=== PATIENT | female | born 1965 | race Caucasian/White ===

== ENCOUNTER 2023-04-26 14:21 | Inpatient (IN) | payer BC, OTHER ==
[~2023-04-26] VITALS: Ht 160 cm; Wt 152.0 kg
[2023-04-26] VITALS (7 sets, daily range): BP systolic 97–128; PULSE 101–126; RESP 17–26; TEMP 97.9–98.4; O2SAT 93–100
[2023-04-26] MEDS ORDERED: methylPREDNISolone SOD SUCC/PF 62.5 MG/ML VIAL IVP ONE (14:30)
[2023-04-26 16:06] LABS: BASOPHILS # (AUTO) 0.1 K/uL (0.0-0.2); BASOPHILS % (AUTO) 0.5 % (0.0-2.0); EOSINOPHILS # (AUTO) 0.3 K/uL (0.0-0.4); EOSINOPHILS % (AUTO) 2.4 % (0.0-4.0); HEMATOCRIT 35.3 % (36-48); HEMOGLOBIN 11.9 g/dL (12.0-16.0); LYMPHOCYTES # (AUTO) 1.8 K/uL (1.0-5.5); LYMPHOCYTES % (AUTO) 15.9 % (20.5-51.5); MEAN CORPUSCULAR HEMOGLOBIN 33 pg (27-31); MEAN CORPUSCULAR HGB CONC 34 % (32-36); MEAN CORPUSCULAR VOLUME 97 fL (79.0-98.0); MONOCYTES # (AUTO) 0.8 K/uL (0.0-1.0); NEUTROPHILS # (AUTO) 8.3 K/uL (1.8-7.7); NEUTROPHILS % (AUTO) 74.2 % (40.0-70.0); PLATELET COUNT (AUTO) 326 K/uL (130-430); RED BLOOD CELL COUNT(AUTO) 3.63 MIL/uL (4.2-6.2); RED CELL DISTRIBUTION WIDTH 14.2 % (9.0-15.0); WHITE BLOOD COUNT (AUTO) 11.1 K/uL (4.8-10.8)
[2023-04-26] MEDS ORDERED: PIPERACILLIN/TAZO 4.5 GM in NS 100 ML IV ONE (16:15)
[2023-04-26 16:25] LABS: ANION GAP 14 (5-15); CALCIUM 8.4 mg/dL (8.4-11.0); CARBON DIOXIDE 26 mmol/L (23-29); CHLORIDE 99 mmol/L (98-107); CREATININE 1.49 mg/dL (0.55-1.30); GFR AFRICAN AMERICAN 47 mL/min (>90); GLUCOSE 174 mg/dL (74-106); POTASSIUM 3.3 mmol/L (3.5-5.1); SODIUM SERUM 139 mmol/L (136-145); UREA NITROGEN, BLOOD 39 mg/dL (8-21)
[2023-04-26 16:29] LABS: GFR NON AFRICAN-AMERICAN 38 mL/min (>90)
[2023-04-26] MEDS ORDERED: PIPERACILLIN/TAZOBACTAM 4.5 GM/VIAL (ZOSYN) IV ONE (16:58)
[2023-04-26] MEDS ORDERED: NACL 0.9% 1,000 ML IV ONE (17:15)
[2023-04-26 17:29] LABS: ABG O2 SAT% ESTIMATE 92.8 % (94.0-100.0); BLOOD GAS BASE EXCESS 1.6 mmol/L (-3.0-3.0); BLOOD GAS HCO3 25.9 mmol/L (21.0-27.0); BLOOD GAS PCO2 39.8 mmHg (35.0-45.0); BLOOD GAS PH 7.432 (7.350-7.450); BLOOD GAS PO2 63.2 mmHg (75.0-100.0)
[2023-04-26 17:30] LABS: ALLEN'S TEST POSITIVE (P)
[2023-04-26] MEDS ORDERED: IPRATROPIUM/ALBUTEROL SULFATE 3 ML AMPUL.NEB (DUONEB) INH PRN ×3 (17:30→22:00)
[2023-04-26 17:47] LABS: INR 1.3 (0.8-1.2); PROTHROMBIN TIME 13.1 SECS (9.5-12.5)
[2023-04-26] MEDS ORDERED: LINEZOLID 300 ML IV ONE (18:00)
[2023-04-26] MEDS ORDERED: NACL 0.9% 2,000 ML IV ONE (18:15)
[2023-04-26] MEDS ORDERED: HYDR-3917 PO (18:17)
[2023-04-26] MEDS ORDERED: LOSA1TAB37 PO (18:17)
[2023-04-26] MEDS ORDERED: BETA15CR3 TP (18:17)
[2023-04-26] MEDS ORDERED: ALBU10.7 (18:17)
[2023-04-26] MEDS ORDERED: POTA-178 PO (18:17)
[2023-04-26] MEDS ORDERED: LORA-258 (18:17)
[2023-04-26] MEDS ORDERED: HYDC2.5% TP (18:17)
[2023-04-26] MEDS ORDERED: PARO-41 PO (18:17)
[2023-04-26] MEDS ORDERED: SPIR25TA6 PO (18:17)
[2023-04-26] MEDS ORDERED: BENZ100C92 PO (18:17)
[2023-04-26] MEDS ORDERED: HYDR-3927 PO (18:17)
[2023-04-26] MEDS ORDERED: ONDA-8 PO (18:17)
[2023-04-26] MEDS ORDERED: FURO40TA5 PO (18:17)
[2023-04-26] MEDS ORDERED: FLUO15OI4 (18:17)
[2023-04-26] MEDS ORDERED: LOM2.5 (18:17)
[2023-04-26] MEDS ORDERED: *LOVENOX 1MG/KG Q12H/PHARMACY XX ONE (18:30)
[2023-04-26 19:22] LABS: BILIRUBIN,URINE 1+ (NEGATIVE); BLOOD, URINE 2+ (NEGATIVE); CLARITY/URINE SL CLOUDY (CLEAR); COLOR,URINE YELLOW (YELLOW); GLUCOSE,URINE NEGATIVE (NEGATIVE); KETONES,URINE TRACE (NEGATIVE); LEUKOCYTE ESTERASE ,URINE 2+ (NEGATIVE); NITRITE, URINE NEGATIVE (NEGATIVE); PROTEIN URINE 1+ (NEGATIVE); UROBILINOGEN,URINE 0.2 (0.2-1.0)
[2023-04-26 20:09] LABS: BACTERIA,URINE MODERATE /HPF (None Seen); FINE GRANULAR CASTS,URINE 0-10 /LPF (None Seen)
[2023-04-26 20:10] LABS: MUCUS,URINE None Seen /LPF (None Seen); OTHER CASTS, URINE WAXY CASTS 1+ /LPF (None Seen)
[2023-04-26] MEDS ORDERED: ENOXAPARIN SODIUM SUBCUT ONE ×2 (21:00)
[2023-04-26] MEDS ORDERED: TEMAZEPAM 15 MG CAPSULE PO PRN (21:30)
[2023-04-26] MEDS ORDERED: ACETAMINOPHEN 325 MG TABLET PO PRN ×2 (21:30→22:00)
[2023-04-26] MEDS: LINEZOLID 300 ML IV SCH (21:42)
[2023-04-26] MEDS ORDERED: ENOXAPARIN SODIUM 30 MG/0.3 ML SYRINGE ONE (21:48)
[2023-04-26] MEDS ORDERED: NALOXONE HCL 0.4 MG/ML AMP (NARCAN) IVP PRN ×2 (22:00)
[2023-04-26] MEDS ORDERED: HYDROcodone/ACETAMIN 10-325 MG TAB PO PRN (22:00)
[2023-04-26] MEDS ORDERED: HYDROcodone/ACETAMIN 5-325 MG TAB (NORCO/ VICODIN) PO PRN (22:00)
[2023-04-26] MEDS ORDERED: ONDANSETRON 4 MG ODT TAB PO PRN (22:00)
[2023-04-26] MEDS: BENZONATATE 100 MG CAPSULE (TESSALON) PO PRN (22:25)
[2023-04-26] MEDS: LR 1,000 ML IV SCH (23:16)
[2023-04-26 23:25] LABS: COVID19 ANTIGEN SOFIA FIA NEGATIVE (NEGATIVE)
[2023-04-26 23:56] LABS: INFLUENZA TYPE A Negative (NEGATIVE); INFLUENZA TYPE B NEGATIVE (NEGATIVE)
[2023-04-27] VITALS (29 sets, daily range): BP systolic 105–145; PULSE 70–109; RESP 17–27; TEMP 97.6–98.5; O2SAT 95–100
[2023-04-27] MEDS: IPRATROPIUM/ALBUTEROL SULFATE 3 ML AMPUL.NEB (DUONEB) INH SCH ×4 (02:00→21:26)
[2023-04-27 05:37] LABS: BASOPHILS % (AUTO) 0.1 % (0.0-2.0); HEMATOCRIT 35.7 % (36-48); HEMOGLOBIN 12.1 g/dL (12.0-16.0); LYMPHOCYTES # (AUTO) 0.9 K/uL (1.0-5.5); LYMPHOCYTES % (AUTO) 8.7 % (20.5-51.5); MEAN CORPUSCULAR HEMOGLOBIN 33 pg (27-31); MEAN CORPUSCULAR HGB CONC 34 % (32-36); MEAN CORPUSCULAR VOLUME 97 fL (79.0-98.0); MONOCYTES # (AUTO) 0.3 K/uL (0.0-1.0); MONOCYTES % (AUTO) 2.6 % (1.7-9.3); NEUTROPHILS # (AUTO) 9.2 K/uL (1.8-7.7); NEUTROPHILS % (AUTO) 88.6 % (40.0-70.0); PLATELET COUNT (AUTO) 262 K/uL (130-430); RED BLOOD CELL COUNT(AUTO) 3.69 MIL/uL (4.2-6.2); RED CELL DISTRIBUTION WIDTH 13.9 % (9.0-15.0); WHITE BLOOD COUNT (AUTO) 10.3 K/uL (4.8-10.8)
[2023-04-27 06:18] LABS: ALBUMIN 1.7 g/dL (3.4-4.8); CALCIUM 8.6 mg/dL (8.4-11.0); FREE T4 (FREE THYROXINE) 1.2 ng/dL (0.6-1.6); PHOSPHORUS 4.2 mg/dL (2.7-4.5); POTASSIUM 3.9 mmol/L (3.5-5.1); THYROID STIMULATING HORMONE 1.39 uIu/mL (0.34-4.82); TOTAL BILIRUBIN 0.4 mg/dL (0.0-1.0)
[2023-04-27] MEDS ORDERED: SPIRONOLACTONE 25 MG TABLET (ALDACTONE) PO SCH (09:00)
[2023-04-27] MEDS: FUROSEMIDE 40 MG TABLET PO SCH ×2 (09:47→20:49)
[2023-04-27] MEDS: POTASSIUM CHLORIDE 10 MEQ TABLET.ER PO SCH (09:47)
[2023-04-27] MEDS: PARoxetine HCL 20 MG TABLET PO SCH (09:47)
[2023-04-27] MEDS: LINEZOLID 300 ML IV SCH ×2 (09:48→20:49)
[2023-04-27] MEDS: HYDROCORTISONE 2.5%, 30 GM TOPICAL CREAM TP SCH ×2 (09:49→20:49)
[2023-04-27] MEDS ORDERED: *HEPARIN PER PHARMACY XX ONE (11:45)
[2023-04-27] MEDS ORDERED: HEPARIN SODIUM,PORCINE 3000 UNITS/0.6 ML BOLUS IVP PRN (11:45)
[2023-04-27] MEDS ORDERED: HEPARIN SODIUM,PORCINE 2000 UNITS/0.4 ML BOLUS IVP PRN (11:45)
[2023-04-27] MEDS ORDERED: HEPARIN SODIUM,PORCINE 5,000 UNITS/ML VIAL IVP ONE (12:00)
[2023-04-27] MEDS ORDERED: MICAFUNGIN SODIUM 50 MG in NS 50 ML IV SCH (13:00)
[2023-04-27] MEDS: HEPARIN 25,000 UNITS/D5W 250ML 250 ML IV PRN (13:49)
[2023-04-27] MEDS: MEROPENEM 500 MG in NS 50 ML IV SCH ×2 (13:50→22:34)
[2023-04-27] MEDS: LR 1,000 ML IV SCH (16:09)
[2023-04-27] MEDS: MICAFUNGIN SODIUM 50 MG in NS 50 ML IV SCH (16:09)
[2023-04-27] MEDS ORDERED: LEVOFLOXACIN 250 MG/D5W 50 ML IV SCH (21:00)
[2023-04-28] VITALS (28 sets, daily range): BP systolic 92–154; PULSE 69–113; RESP 15–33; TEMP 97.5–98.2; O2SAT 90–100
[2023-04-28 05:08] LABS: BASOPHILS % (AUTO) 0.1 % (0.0-2.0); HEMATOCRIT 33.3 % (36-48); HEMOGLOBIN 11.1 g/dL (12.0-16.0); LYMPHOCYTES % (AUTO) 6.2 % (20.5-51.5); MEAN CORPUSCULAR HEMOGLOBIN 32 pg (27-31); MEAN CORPUSCULAR HGB CONC 33 % (32-36); MEAN CORPUSCULAR VOLUME 97 fL (79.0-98.0); MONOCYTES # (AUTO) 1.2 K/uL (0.0-1.0); MONOCYTES % (AUTO) 7.5 % (1.7-9.3); NEUTROPHILS # (AUTO) 13.3 K/uL (1.8-7.7); NEUTROPHILS % (AUTO) 86.2 % (40.0-70.0); PLATELET COUNT (AUTO) 260 K/uL (130-430); RED BLOOD CELL COUNT(AUTO) 3.44 MIL/uL (4.2-6.2); RED CELL DISTRIBUTION WIDTH 13.8 % (9.0-15.0); WHITE BLOOD COUNT (AUTO) 15.4 K/uL (4.8-10.8)
[2023-04-28 05:31] LABS: ALBUMIN 1.6 g/dL (3.4-4.8); CREATININE 1.81 mg/dL (0.55-1.30); POTASSIUM 3.5 mmol/L (3.5-5.1); TOTAL BILIRUBIN 0.3 mg/dL (0.0-1.0); TOTAL PROTEIN, SERUM 7.1 g/dL (6.4-8.3)
[2023-04-28] MEDS: LR 1,000 ML IV SCH (07:20)
[2023-04-28] MEDS: PARoxetine HCL 20 MG TABLET PO SCH (09:16)
[2023-04-28] MEDS: POTASSIUM CHLORIDE 10 MEQ TABLET.ER PO SCH (09:16)
[2023-04-28] MEDS: FUROSEMIDE 40 MG TABLET PO SCH ×2 (09:17→21:20)
[2023-04-28] MEDS: HYDROCORTISONE 2.5%, 30 GM TOPICAL CREAM TP SCH ×2 (09:17→21:20)
[2023-04-28] MEDS: LINEZOLID 300 ML IV SCH (09:18)
[2023-04-28] MEDS: HEPARIN 25,000 UNITS/D5W 250ML 250 ML IV PRN (10:32)
[2023-04-28] MEDS: IPRATROPIUM/ALBUTEROL SULFATE 3 ML AMPUL.NEB (DUONEB) INH SCH ×3 (11:41→19:45)
[2023-04-28] MEDS: MICAFUNGIN SODIUM 50 MG in NS 50 ML IV SCH (16:03)
[2023-04-28] MEDS: MEROPENEM 500 MG in NS 50 ML IV SCH (21:20)
[2023-04-29] VITALS (25 sets, daily range): BP systolic 107–148; PULSE 89–110; RESP 16–23; TEMP 97.5–98.2; O2SAT 90–100
[2023-04-29] MEDS: LR 1,000 ML IV SCH ×2 (00:28→16:07)
[2023-04-29] MEDS: BENZONATATE 100 MG CAPSULE (TESSALON) PO PRN ×3 (02:39→23:43)
[2023-04-29] MEDS: HEPARIN 25,000 UNITS/D5W 250ML 250 ML IV PRN ×2 (05:26→07:25)
[2023-04-29 05:34] LABS: BASOPHILS % (AUTO) 0.4 % (0.0-2.0); EOSINOPHILS # (AUTO) 0.2 K/uL (0.0-0.4); EOSINOPHILS % (AUTO) 1.7 % (0.0-4.0); HEMOGLOBIN 10.8 g/dL (12.0-16.0); LYMPHOCYTES % (AUTO) 9.1 % (20.5-51.5); MEAN CORPUSCULAR HEMOGLOBIN 33 pg (27-31); MEAN CORPUSCULAR HGB CONC 34 % (32-36); MEAN CORPUSCULAR VOLUME 97 fL (79.0-98.0); MONOCYTES # (AUTO) 0.9 K/uL (0.0-1.0); MONOCYTES % (AUTO) 8.2 % (1.7-9.3); NEUTROPHILS # (AUTO) 8.7 K/uL (1.8-7.7); NEUTROPHILS % (AUTO) 80.6 % (40.0-70.0); PLATELET COUNT (AUTO) 255 K/uL (130-430); RED CELL DISTRIBUTION WIDTH 14.1 % (9.0-15.0); WHITE BLOOD COUNT (AUTO) 10.8 K/uL (4.8-10.8)
[2023-04-29] MEDS: MEROPENEM 500 MG in NS 50 ML IV SCH ×3 (06:54→23:11)
[2023-04-29] MEDS: IPRATROPIUM/ALBUTEROL SULFATE 3 ML AMPUL.NEB (DUONEB) INH SCH ×4 (07:12→20:22)
[2023-04-29] MEDS: HYDROCORTISONE 2.5%, 30 GM TOPICAL CREAM TP SCH ×2 (08:41→21:00)
[2023-04-29] MEDS: POTASSIUM CHLORIDE 10 MEQ TABLET.ER PO SCH (08:42)
[2023-04-29] MEDS: FUROSEMIDE 40 MG TABLET PO SCH ×2 (08:42→21:00)
[2023-04-29] MEDS: PARoxetine HCL 20 MG TABLET PO SCH (08:42)
[2023-04-29 10:06] LABS: HSV 2 IgG, TYPE SPECIFIC <0.91 index (0.00-0.90)
[2023-04-29] MEDS ORDERED: APIXABAN 2.5 MG TABLET PO ONE (16:00)
[2023-04-29] MEDS: MICAFUNGIN SODIUM 50 MG in NS 50 ML IV SCH (16:04)
[2023-04-29] MEDS: NYSTATIN 15 GM TOPICAL POWDER TP SCH (21:00)
[2023-04-29] MEDS: ACYCLOVIR 400 MG TABLET PO SCH (21:00)
[2023-04-29] MEDS ORDERED: LANOLIN ALCOHOL/MO/W.PET/CERES 57 GM CREAM..G. TP SCH (21:00)
[2023-04-29] MEDS: LANOLIN ALCOHOL/MO/W.PET/CERES 57 GM CREAM..G. TP SCH (21:00)
[2023-04-29] MEDS: APIXABAN 2.5 MG TABLET PO SCH (21:00)
[2023-04-30] VITALS (10 sets, daily range): BP systolic 120–148; PULSE 90–105; RESP 18–20; TEMP 96.5–98.2; O2SAT 93–97
[2023-04-30] MEDS: MEROPENEM 500 MG in NS 50 ML IV SCH (06:43)
[2023-04-30 07:31] LABS: BASOPHILS % (AUTO) 0.5 % (0.0-2.0); EOSINOPHILS # (AUTO) 0.4 K/uL (0.0-0.4); EOSINOPHILS % (AUTO) 5.3 % (0.0-4.0); HEMATOCRIT 33.6 % (36-48); HEMOGLOBIN 11.2 g/dL (12.0-16.0); LYMPHOCYTES % (AUTO) 13.7 % (20.5-51.5); MEAN CORPUSCULAR HEMOGLOBIN 33 pg (27-31); MEAN CORPUSCULAR HGB CONC 33 % (32-36); MEAN CORPUSCULAR VOLUME 98 fL (79.0-98.0); MONOCYTES # (AUTO) 0.7 K/uL (0.0-1.0); MONOCYTES % (AUTO) 9.1 % (1.7-9.3); NEUTROPHILS # (AUTO) 5.2 K/uL (1.8-7.7); NEUTROPHILS % (AUTO) 71.4 % (40.0-70.0); PLATELET COUNT (AUTO) 260 K/uL (130-430); RED BLOOD CELL COUNT(AUTO) 3.43 MIL/uL (4.2-6.2); RED CELL DISTRIBUTION WIDTH 14.3 % (9.0-15.0); WHITE BLOOD COUNT (AUTO) 7.3 K/uL (4.8-10.8)
[2023-04-30 07:56] LABS: ALBUMIN 1.9 g/dL (3.4-4.8); CALCIUM 8.4 mg/dL (8.4-11.0); CREATININE 1.22 mg/dL (0.55-1.30); POTASSIUM 3.5 mmol/L (3.5-5.1); TOTAL BILIRUBIN 0.4 mg/dL (0.0-1.0); TOTAL PROTEIN, SERUM 7.4 g/dL (6.4-8.3)
[2023-04-30] MEDS: IPRATROPIUM/ALBUTEROL SULFATE 3 ML AMPUL.NEB (DUONEB) INH SCH ×4 (08:02→20:22)
[2023-04-30] MEDS: ACYCLOVIR 400 MG TABLET PO SCH ×2 (08:40→22:20)
[2023-04-30] MEDS: FUROSEMIDE 40 MG TABLET PO SCH ×2 (08:41→22:20)
[2023-04-30] MEDS: APIXABAN 2.5 MG TABLET PO SCH ×2 (08:44→22:28)
[2023-04-30] MEDS: HYDROCORTISONE 2.5%, 30 GM TOPICAL CREAM TP SCH ×2 (09:00→21:00)
[2023-04-30] MEDS ORDERED: LANOLIN ALCOHOL/MO/W.PET/CERES 57 GM CREAM..G. TP SCH (09:00)
[2023-04-30] MEDS: BENZONATATE 100 MG CAPSULE (TESSALON) PO PRN (09:04)
[2023-04-30] MEDS: POTASSIUM CHLORIDE 10 MEQ TABLET.ER PO SCH (09:04)
[2023-04-30] MEDS: NYSTATIN 15 GM TOPICAL POWDER TP SCH ×2 (09:04→22:21)
[2023-04-30] MEDS: PARoxetine HCL 20 MG TABLET PO SCH (09:04)
[2023-04-30] MEDS: LANOLIN ALCOHOL/MO/W.PET/CERES 57 GM CREAM..G. TP SCH ×2 (09:05→22:20)
[2023-04-30] MEDS: LR 1,000 ML IV SCH (09:14)
[2023-05-01] VITALS (12 sets, daily range): BP systolic 116–145; PULSE 57–102; RESP 16–22; TEMP 97–98.3; O2SAT 92–98
[2023-05-01] MEDS: LR 1,000 ML IV SCH (02:00)
[2023-05-01 06:09] LABS: BASOPHILS % (AUTO) 0.5 % (0.0-2.0); EOSINOPHILS # (AUTO) 0.5 K/uL (0.0-0.4); EOSINOPHILS % (AUTO) 5.7 % (0.0-4.0); HEMATOCRIT 32.8 % (36-48); HEMOGLOBIN 11.1 g/dL (12.0-16.0); LYMPHOCYTES # (AUTO) 1.1 K/uL (1.0-5.5); LYMPHOCYTES % (AUTO) 13.1 % (20.5-51.5); MEAN CORPUSCULAR HEMOGLOBIN 33 pg (27-31); MEAN CORPUSCULAR HGB CONC 34 % (32-36); MEAN CORPUSCULAR VOLUME 98 fL (79.0-98.0); MONOCYTES # (AUTO) 0.7 K/uL (0.0-1.0); MONOCYTES % (AUTO) 8.3 % (1.7-9.3); NEUTROPHILS # (AUTO) 5.9 K/uL (1.8-7.7); NEUTROPHILS % (AUTO) 72.4 % (40.0-70.0); PLATELET COUNT (AUTO) 257 K/uL (130-430); RED BLOOD CELL COUNT(AUTO) 3.37 MIL/uL (4.2-6.2); RED CELL DISTRIBUTION WIDTH 14.1 % (9.0-15.0); WHITE BLOOD COUNT (AUTO) 8.1 K/uL (4.8-10.8)
[2023-05-01] MEDS: IPRATROPIUM/ALBUTEROL SULFATE 3 ML AMPUL.NEB (DUONEB) INH SCH ×3 (07:53→15:15)
[2023-05-01] MEDS: FUROSEMIDE 40 MG TABLET PO SCH (10:45)
[2023-05-01] MEDS: POTASSIUM CHLORIDE 10 MEQ TABLET.ER PO SCH (10:45)
[2023-05-01] MEDS: PARoxetine HCL 20 MG TABLET PO SCH (10:46)
[2023-05-01] MEDS: ACYCLOVIR 400 MG TABLET PO SCH (10:46)
[2023-05-01] MEDS: LANOLIN ALCOHOL/MO/W.PET/CERES 57 GM CREAM..G. TP SCH (10:46)
[2023-05-01] MEDS: NYSTATIN 15 GM TOPICAL POWDER TP SCH (10:47)
[2023-05-01] MEDS: APIXABAN 2.5 MG TABLET PO SCH (10:48)
[2023-05-01] MEDS ORDERED: ACYC400T19 PO (13:17)
[2023-05-01] MEDS ORDERED: CEPH-548 PO (13:17)
[2023-05-01] MEDS ORDERED: IPRA3AMP9 INH (13:17)
[2023-05-01] MEDS ORDERED: APIX5TAB PO (17:57)
[2023-05-02] MEDS ORDERED: APIXABAN 2.5 MG TABLET PO SCH (09:00)
== END 2023-05-01 19:50 | disposition home health service (06) | DRG 299 ==
LOC: SED 14:21 → STU 17:08 → SIC 17:26 → STU 04-29 17:15
PROVIDERS: ADMIT Internal Medicine; ATTEND Internal Medicine
PROC: 5A0935A Assistance with Respiratory Ventilation, Less than 24 Consecutive Hours, High Flow/Velocity Cannula (ICD-10-PCS; principal; 2023-04-26)
PROC: 5A09357 Assistance with Respiratory Ventilation, Less than 24 Consecutive Hours, Continuous Positive Airway Pressure (ICD-10-PCS; 2023-04-26)
PROC: 5A0935A Assistance with Respiratory Ventilation, Less than 24 Consecutive Hours, High Flow/Velocity Cannula (ICD-10-PCS; 2023-04-27)
DX: I82.401 Acute embolism and thrombosis of unspecified deep veins of right lower extremity (principal); E43 Unspecified severe protein-calorie malnutrition; J18.9 Pneumonia, unspecified organism; J96.00 Acute respiratory failure, unspecified whether with hypoxia or hypercapnia; N17.0 Acute kidney failure with tubular necrosis; C34.92 Malignant neoplasm of unspecified part of left bronchus or lung; Q61.3 Polycystic kidney, unspecified; J90 Pleural effusion, not elsewhere classified; Z68.43 Body mass index [BMI] 50.0-59.9, adult; I10 Essential (primary) hypertension; E66.01 Morbid (severe) obesity due to excess calories; Z20.822 Contact with and (suspected) exposure to COVID-19; G89.4 Chronic pain syndrome; D63.8 Anemia in other chronic diseases classified elsewhere; I87.8 Other specified disorders of veins; I27.20 Pulmonary hypertension, unspecified; Z85.43 Personal history of malignant neoplasm of ovary; Z90.710 Acquired absence of both cervix and uterus; Z80.49 Family history of malignant neoplasm of other genital organs; Z80.1 Family history of malignant neoplasm of trachea, bronchus and lung; Z79.899 Other long term (current) drug therapy
CPT/HCPCS: 36415; 36600; 71045; 76770; 78579; 78580-TC; 80048; 80053; 81000; 81001; 81015; 82803; 83735; 83880; 84100; 84439; 84443; 84484; 85025; 85379; 85610-TC; 85730-TC; 86304; 86695; 86696; 87040; 87081; 87086; 87305; 87497; 93005; 93306; 93970; 94640; 94660; 94760; 96365; 97110-GP; 97116-GP; 97530-GP; 99291; A9539; A9540; G0378; J0696; J1644; J1650; J1956; J2020; J2185; J2543; J2930; J7060; Q0162